=== PATIENT | female | born 1995 | race Caucasian/White ===

== ENCOUNTER 2022-09-06 14:39 | Emergency (ER) | payer MEDICAID ==
[~2022-09-06] VITALS: Ht 157.5 cm; Wt 67.6 kg
[2022-09-06 14:45] VITALS: BP_SYST 144
[2022-09-06] MEDS ORDERED: ONDANSETRON 4 MG ODT TAB PO ONE (15:00)
--- NOTE | 2022-09-06 15:15 | NUR ---
PATIENT CC NEAR SYNCOPE DURING HEAVY PHYSICAL WORKOUT ROUTINE. PATIENT STATES HER ROUTINE WAS AT A USUAL INTENSITY & SYMPTOMS INCLUDED WEAKNESS, WITH SKAING & LIGHTHEADENESS. MED HX ASTHMA, ADHD, ANXIETY. ALLERGY TO STRAWBERRIES. VSS.
--- NOTE | 2022-09-06 15:45 | NUR ---
MEDS GIVEN PER MD ORDERS
--- NOTE | 2022-09-06 16:10 | NUR ---
Blood sugar: 93 notified
[2022-09-06 16:35] VITALS: BP_SYST 114
--- NOTE | 2022-09-06 16:35 | NUR ---
Patient given written and verbal discharge instructions and verbalizes understanding. ER MD discussed with patient the results and treatment provided. Patient in stable condition. ID arm band removed. Patient educated on pain management and to follow up with PMD. Pain Scale 0/10. Opportunity for questions provided and answered. Near syncope information sheet provided.
== END 2022-09-06 16:35 | disposition home or self-care (01) ==
LOC: SED 14:44
DX: R55 Syncope and collapse (principal); R42 Dizziness and giddiness; F41.9 Anxiety disorder, unspecified; J45.909 Unspecified asthma, uncomplicated; Z91.018 Allergy to other foods; Z79.899 Other long term (current) drug therapy
CPT/HCPCS: 99283; 82962; Q0162